=== PATIENT | female | born 1940 | race American Indian/Alaskan Native ===

== ENCOUNTER 2016-05-16 11:18 | Outpatient (CLI) | payer MEDICARE ==
--- NOTE | 2016-05-16 15:58 | XRay Report ---
CHEST TWO VIEWS: 05/16/16 11:18:00 CLINICAL: Cough.History of Mycosis fungoides. COMPARISON: 11/12/14 FINDINGS: Normal heart and pulmonary vasculature. The lungs are normally expanded and clear.The bones and soft tissues are normal. IMPRESSION: Normal chest.
== END 2016-05-16 11:19 | disposition home or self-care (01) ==
LOC: SPVIMAG 11:18
PROVIDERS: ATTEND Internal Medicine Hematology & Oncology
DX: R05 Cough (principal); Z87.2 Personal history of diseases of the skin and subcutaneous tissue
CPT/HCPCS: 71020